=== PATIENT | female | born 1975 | race African-American/Black ===

== ENCOUNTER 2017-05-23 07:36 | Emergency (ER) | payer SELFPAY ==
[~2017-05-23] VITALS: Ht 157.5 cm; Wt 80.7 kg
[~2017-05-23 07:36] MED LIST: AMOXICILLIN500 M1 PO; LORATADINE10 M2 PO; NORCO 5-325 TA1 EACH ORAL; PHENERGAN6.25 MG/5 GT; XANAX1 MG ORAL
[2017-05-23 08:00] VITALS: BP 177/83
[2017-05-23] MEDS ORDERED: Morphine Sulfate 4mg/ml Inj ONE (08:06)
[2017-05-23] MEDS ORDERED: LORazepam Inj 2mg/ml 1ml ONE (08:07)
[2017-05-23] MEDS ORDERED: NKM (09:13)
--- NOTE | 2017-05-23 09:30 | Emergency Room Report ---
History of Present Illness General Chief Complaint: Abdominal Pain Source: Patient Present Illness HPI Patient presents with significant epigastric abdominal pain reports his radiation towards her back Patient reports several episodes of vomiting Pain came on this morning approximately 3 hours prior to arrival Denies any fevers Denies any chest pain or shortness of breath Pain is 10 out of 10 sharp Denies any previous abdominal surgeries Allergies: Coded Allergies: [place] (Verified Allergy, Intermediate, Hives, 09/12/14) Patient History Past Medical History: see triage record Pertinent Family History: none Last Menstrual Period: 05/17/17 Now: No Reviewed Nursing Documentation: PMH: Agreed, PSxH: Agreed Nursing Documentation-PMH Past Medical History: No Stated History Review of Systems All Other Systems: negative except mentioned in HPI Physical Exam Vital Signs Date Time Temp Pulse Resp B/P (MAP) Pulse Ox O2 Delivery O2 Flow Rate FiO2 05/23/17 08:00 66 18 177/83 97 Room Air 05/23/17 09:11 99.0 Sp02 EP Interpretation: reviewed, normal General Appearance: mild distress - Appears uncomfortable Head: normocephalic, atraumatic Eyes: bilateral eye PERRL, bilateral eye EOMI ENT: hearing grossly normal, normal pharynx, TMs + canals normal, uvula midline Neck: full range of motion, supple, no meningismus, no bony tend Respiratory: lungs clear, normal breath sounds, no rhonchi, no respiratory distress, no retraction, no accessory muscle use Cardiovascular #1: normal peripheral pulses, regular rate, rhythm, no edema, no gallop, no JVD, no murmur Gastrointestinal: normal bowel sounds, soft, no mass, no organomegaly, non- distended, no guarding, no hernia, no pulsatile mass, no rebound, tenderness - Epigastric region Genitourinary: no CVA tenderness Musculoskeletal: normal inspection Neurologic: oriented x3, responsive, service technician copier III-XII nml as tested, motor strength/ tone normal, sensory intact Psychiatric: mood/affect normal Skin: normal color, no rash, warm/dry, palpation normal Lymphatic: normal inspection, no adenopathy Medical Decision Making Diagnostic Impression: Primary Impression: Abdominal pain Additional Impressions: Ovarian cyst Pelvic congestion syndrome Biliary colic ER Course With the patient's history and examination, multiple differentials considered, including but not limited to , ectopic , ovarian torsion, gastritis, cholecystitis, pancreatitis, appendicitis Patient's imaging studies reveal several abnormalities Her findings suggesting pelvic congestion Also evidence of ovarian cyst Patient also has findings of gallstones which do correlate clinically with the location of discomfort and likely evidence of pericolic Patient has done significantly better At this time other imaging as I feel acute pathology And the patient stable for initial conservative outpatient trial Labs Test 05/23/17 09:07 05/23/17 09:30 Urine Color Pale yellow Urine Appearance Clear Urine pH 8 (4.5-8.0) Urine Specific [place] 1.015 (1.005-1.035) Urine Protein 1+ (NEGATIVE) Urine Glucose (UA) Negative (NEGATIVE) Urine Ketones 3+ (NEGATIVE) Urine Occult Blood 1+ (NEGATIVE) Urine Nitrite Negative (NEGATIVE) Urine Bilirubin Negative (NEGATIVE) Urine Urobilinogen Normal MG/DL (0.0-1.0) Urine Leukocyte Esterase Negative (NEGATIVE) Urine RBC 2-4 /HPF (0 - 2) Urine WBC 0-2 /HPF (0 - 2) Urine Squamous Epithelial Cells Few /LPF (NONE/OCC) Urine Bacteria Few /HPF (NONE) Urine Mucus Few /LPF (NONE/OCC) Urine HCG, Qualitative Negative White Blood Count 10.5 K/UL (4.8-10.8) Red Blood Count 5.14 M/UL (4.20-5.40) Hemoglobin 13.7 G/DL (12.0-16.0) Hematocrit 41.9 % (37.0-47.0) Mean Corpuscular Volume 82 FL (80-99) Mean Corpuscular Hemoglobin 26.7 PG (27.0-31.0) Mean Corpuscular Hemoglobin Concent 32.8 G/DL (32.0-36.0) Red Cell Distribution Width 13.4 % (11.6-14.8) Platelet Count 533 K/UL (150-450) Mean Platelet Volume 5.1 FL (6.5-10.1) Neutrophils (%) (Auto) % (45.0-75.0) Lymphocytes (%) (Auto) % (20.0-45.0) Monocytes (%) (Auto) % (1.0-10.0) Eosinophils (%) (Auto) % (0.0-3.0) Basophils (%) (Auto) % (0.0-2.0) Differential Total Cells Counted 100 Neutrophils % (Manual) 79 % (45-75) Lymphocytes % (Manual) 17 % (20-45) Monocytes % (Manual) 4 % (1-10) Eosinophils % (Manual) 0 % (0-3) Basophils % (Manual) 0 % (0-2) Band Neutrophils 0 % (0-8) Platelet Estimate Increased Platelet Morphology Normal Red Blood Cell Morphology Normal Sodium Level 136 MMOL/L (136-145) Potassium Level 2.8 MMOL/L (3.5-5.1) Chloride Level 98 MMOL/L (98-107) Carbon Dioxide Level 25 MMOL/L (21-32) Anion Gap 13 mmol/L (5-15) Blood Urea Nitrogen 4 mg/dL (7-18) Creatinine 0.8 MG/DL (0.55-1.30) Estimat Glomerular Filtration Rate > 60 mL/min (>60) Glucose Level 118 MG/DL (74-106) Calcium Level 9.7 MG/DL (8.5-10.1) Total Bilirubin 0.4 MG/DL (0.2-1.0) Aspartate Amino Transf (AST/SGOT) 17 U/L (15-37) Alanine Aminotransferase (ALT/SGPT) 15 U/L (12-78) Alkaline Phosphatase 91 U/L (46-116) Total Protein 9.7 G/DL (6.4-8.2) Albumin 3.9 G/DL (3.4-5.0) Globulin 5.8 g/dL Albumin/Globulin Ratio 0.7 (1.0-2.7) Lipase 72 U/L (73-393) CT/MRI/US Diagnostic Results CT/MRI/US Diagnostic Results : Impression CT abdomen pelvisImpression: No definite acute process 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 Correlation with clinical findings is recommended Bilateral ovarian cysts, most likely functional cysts or dominant follicles. Recommend pelvic sonography to better characterize and determine appropriate follow-up Multiple liver lesions. The largest in the dome is likely but not definitively a benign hemangioma. The second largest is nonspecific and the others are too small to characterize. Recommend further follow-up with hemangioma protocol contrast MRI or CT Cholelithiasis Lumbar scoliosis and arthrosis Last Vital Signs Date Time Temp Pulse Resp B/P (MAP) Pulse Ox O2 Delivery O2 Flow Rate FiO2 05/23/17 09:11 99.0 58 21 166/85 99 Room Air Status: improved Disposition: HOME, SELF-CARE Condition: Improved Scripts Acetaminophen With Codeine (T#3) (TYLENOL #3 TAB*) Y Tab 1 TAB ORAL Q8H Y for For Pain, #12 TAB Prov: NATALIA DAVIES D.O. 05/23/17 Ibuprofen* (MOTRIN*) 600 Mg Tablet 600 MG ORAL Q8H Y for For Pain, #20 TAB 0 Refills Prov: NATALIA DAVIES D.O. 05/23/17 Referrals: NOT CHOSEN IPA/,REFERRING (PCP) Additional Instructions: Patient is provided with the discharge instructions notified to follow up with primary doctor in the next 2-3 days otherwise return to the er with any worsening symptoms. Please note that this report is being documented using DRAG[employer] technology. This can lead to erroneous entry secondary to incorrect interpretation by the dictating instrument. NATALIA DAVIES D.O. May 23, 2017 09:30
[2017-05-23 09:43] LABS: HEMATOCRIT 41.9 % (37.0-47.0); HEMOGLOBIN 13.7 G/DL (12.0-16.0); MEAN CORPUSCULAR VOLUME 82 FL (80-99); PLATELET COUNT 533 K/UL (150-450); RED BLOOD COUNT 5.14 M/UL (4.20-5.40); RED CELL DISTRIBUTION WIDTH 13.4 % (11.6-14.8); WHITE BLOOD COUNT 10.5 K/UL (4.8-10.8)
[2017-05-23 09:49] LABS: APPEARANCE,URINE CLEAR; BILIRUBIN, URINE NEGATIVE (NEGATIVE); COLOR,URINE PALE YELLOW; GLUCOSE, URINE (UA) NEGATIVE (NEGATIVE); KETONES,URINE 3+ (NEGATIVE); LEUKOCYTE ESTERASE ,URINE NEGATIVE (NEGATIVE); NITRITE,URINE NEGATIVE (NEGATIVE); PH,URINE 8 (4.5-8.0); PROTEIN,URINE 1+ (NEGATIVE); UROBILINOGEN,URINE NORMAL MG/DL (0.0-1.0)
[2017-05-23 09:59] LABS: ALANINE AMINOTRANSFERASE 15 U/L (12-78); ALBUMIN 3.9 G/DL (3.4-5.0); ALBUMIN/GLOBULIN RATIO 0.7 (1.0-2.7); ALKALINE PHOSPHATASE 91 U/L (46-116); ANION GAP 13 mmol/L (5-15); ASPARTATE AMINO TRANSFERASE 17 U/L (15-37); BILIRUBIN,TOTAL 0.4 MG/DL (0.2-1.0); BLOOD UREA NITROGEN 4 mg/dL (7-18); CALCIUM 9.7 MG/DL (8.5-10.1); CARBON DIOXIDE 25 MMOL/L (21-32); CHLORIDE 98 MMOL/L (98-107); CREATININE 0.8 MG/DL (0.55-1.30); POTASSIUM 2.8 MMOL/L (3.5-5.1); SODIUM 136 MMOL/L (136-145)
[2017-05-23 10:00] VITALS: BP 180/88
[2017-05-23] MEDS ORDERED: Ketorolac 30mg Inj IV ONE (11:30)
--- NOTE | 2017-05-23 11:37 | Diagnostic Imaging Report ---
Clinical Indication: Abdominal pain Technique: No oral contrast utilized, per emergency room physician request IV administration nonionic contrast. Venous phase spiral acquisition obtained through the abdomen and pelvis. Multiplanar reconstructions were generated. Total dose length product 881.57 mGycm. CTDIvol(s) 18.84 mGy. Dose reduction achieved using automated exposure control Comparison: none Findings: No evidence of diverticulosis or diverticulitis. The appendix is normal. No small bowel distention. No free or loculated intraperitoneal air or fluid. Distal esophagus, stomach, duodenum are unremarkable. Prominent cysts are seen in both ovaries, largest on the left measuring 3.6 cm long axis dimension, largest on the right measuring 4.5 cm long axis dimension. Prominent veins are seen in the bilateral adnexal regions. Both ovarian veins are distended, particularly that on the left. The uterus is unremarkable. The liver demonstrates focal fatty change in the usual location adjacent to the falciform ligament. There is a 13 mm lesion in the dome of the liver, segment 8, which demonstrates some nodular enhancement. 1 cm lesion which demonstrates nonspecific low-attenuation is seen at the junction of segments one and 8, image 15 series 3 subcentimeter low-attenuation lesions seen in the periphery of segment 8 image 14 series 3 and in segment 5, image 27 series 3. The gallbladder demonstrates a probable subtle gallstone. No extrahepatic biliary ductal dilatation, but there is mild prominence to the central intrahepatic ducts. The pancreas is somewhat atrophic. The spleen, adrenals, kidneys are unremarkable. No retroperitoneal or mesenteric mass or adenopathy. The lung bases are clear except for some scarring or atelectasis in the inferior left lobe. There is lumbar scoliotic deformity. There is fairly extensive lower lumbar facet arthrosis. 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 Correlation with clinical findings is recommended Bilateral ovarian cysts, most likely functional cysts or dominant follicles. Recommend pelvic sonography to better characterize and determine appropriate follow-up Multiple liver lesions. The largest in the dome is likely but not definitively a benign hemangioma. The second largest is nonspecific and the others are too small to characterize. Recommend further follow-up with hemangioma protocol contrast MRI or CT Cholelithiasis Lumbar scoliosis and arthrosis The CT scanner at [facility] is accredited by the [employer] and the scans are performed using protocols designed to limit radiation exposure to as low as reasonably achievable to attain images of sufficient resolution adequate for diagnostic evaluation.
[2017-05-23 12:00] VITALS: BP 171/80
[2017-05-23] MEDS ORDERED: ACETAMINOPHEN-1 EAC1 ORAL (12:23)
[2017-05-23] MEDS ORDERED: IBUPROFEN600 MG ORAL (12:23)
[2017-05-23 13:05] VITALS: BP_SYST 164; BP_SYST 166; BP_DIAS 85; BP_DIAS 99
== END 2017-05-23 13:05 | disposition home or self-care (01) ==
LOC: EMR 08:30
DX: R10.13 Epigastric pain (principal); N83.202 Unspecified ovarian cyst, left side; N83.201 Unspecified ovarian cyst, right side; K76.9 Liver disease, unspecified; K80.20 Calculus of gallbladder without cholecystitis without obstruction; M41.86 Other forms of scoliosis, lumbar region
CPT/HCPCS: 36415; 74177; 80053; 81003; 81025; 83690; 85007; 85025; 96374; 96375; 99284; J1885; J2270; J2405; Q9967; S0028; J8499

== ENCOUNTER 2017-07-03 07:01 | Emergency (ER) | payer SELFPAY ==
[~2017-07-03] VITALS: Ht 165.1 cm; Wt 77.1 kg
[2017-07-03] VITALS (10 sets, daily range): BP systolic 134–152; BP diastolic 78–91
[~2017-07-03 07:01] MED LIST changes: +ACETAMINOPHEN-1 EAC1 ORAL; +IBUPROFEN600 MG ORAL; +NKM
[2017-07-03] MEDS ORDERED: UNOBMED (07:07)
--- NOTE | 2017-07-03 07:11 | Emergency Room Report ---
History of Present Illness General Chief Complaint: Behavioral Complaint Source: Patient, EMS Present Illness HPI 42-year-old female brought in by EMS for agitation, running in the streets, acting out. EMS was called by patient's father. Patient not providing useful history of present illness at this time, is very agitated, throwing pens at me, using foul language to nurse and myself, stating she "wants to be Armando Jeffers ". When I asked her if she did a medications patient said she "did Ed Rosales." Review of EMR does not show any previous psychiatric visits. There are no other family or friends bedside to provide collateral information. Allergies: Coded Allergies: [place] (Verified Allergy, Intermediate, Hives, 09/12/14) Patient History Past Medical History: unable to obtain Past Surgical History: unable to obtain Pertinent Family History: unable to obtain Social History: Denies: smoking, alcohol use, drug use Now: No Reviewed Nursing Documentation: PMH: Agreed, PSxH: Agreed Nursing Documentation-PMH History Of Psychiatric Problem: Yes Review of Systems All Other Systems: limited - Patient altered Physical Exam Vital Signs Date Time Temp Pulse Resp B/P (MAP) Pulse Ox O2 Delivery O2 Flow Rate FiO2 07/03/17 07:02 100 18 134/76 100 Room Air Sp02 EP Interpretation: reviewed, normal General Appearance: normal inspection, well appearing, no apparent distress, alert, GCS 15, non-toxic, other - giggling, yelling, throwing pens Head: normocephalic, atraumatic Eyes: bilateral eye PERRL, bilateral eye EOMI ENT: normal ENT inspection, hearing grossly normal, normal pharynx, no angioedema, normal voice, TMs + canals normal, uvula midline, moist mucus membranes Neck: normal inspection, full range of motion, supple, thyroid normal, no meningismus, no bony tend Respiratory: normal inspection, lungs clear, normal breath sounds, no rhonchi, no respiratory distress, no retraction, no accessory muscle use, no wheezing, speaking full sentences Cardiovascular #1: regular rate, rhythm, no edema, no JVD, normal capillary refill Gastrointestinal: normal inspection, normal bowel sounds, non tender, soft, no mass, no peritonitis, non-distended, no guarding, no hernia, no pulsatile mass Genitourinary: no CVA tenderness Musculoskeletal: normal inspection, back normal, normal range of motion, no calf tenderness, pelvis stable, Raji's Sign negative Neurologic: normal inspection, alert, responsive, automation control technician III-XII nml as tested, motor strength/tone normal, cerebellar normal, normal gait, speech normal Psychiatric: normal inspection, judgement/insight normal Skin: normal inspection, normal color, no rash Lymphatic: normal inspection, no adenopathy Medical Decision Making Diagnostic Impression: Primary Impression: Behavioral change Additional Impression: Marijuana abuse ER Course Vital signs stable, afebrile Despite sedation patient repeatedly trying to get out of bed, was preaching to ER staff, quoting from [place]. Patient required soft wrist restraints however broke out of restraints. Then leather restraints were placed to wrist. Patient's urine tox positive for marijuana and benzos Patient states she does smoke marijuana but "hasn't done in a while and asked us these in her urine". I was concern for psychotic break through episode and consulted psychiatry Dr De La Cruz saw patient, concurs possibility of breakthrough episode from marijuana abuse. Patient was given additional IM injection of antipsychotic on psychiatry's recommendation and prescription for Risperdal daily at bedtime for 2 weeks with recommendation to follow-up with psych and avoid marijuana. She is not on a hold Is not endorsing SI, HI, AVH. Patient wants to go home. Was discharged from the ER ER course: Patient has remained stable during ED stay. Disposition: Patient is to be discharged to home. Prescriptions given are risperdal Patient is instructed to follow up with psychiatrist in 2-3 days Strict return precautions discussed with patient such as fever, chills, worsening/severe pain, nausea, vomiting, which may indicate severe illness. Patient verbalizes understanding and agrees with plan. Please note that this Emergency Department Report was dictated using [employer] research manager technology software, occasionally this can lead to erroneous entry secondary to interpretation by the dictation equipment Last Vital Signs Date Time Temp Pulse Resp B/P (MAP) Pulse Ox O2 Delivery O2 Flow Rate FiO2 07/03/17 07:02 100 18 134/76 100 Room Air Status: improved Disposition: HOME, SELF-CARE Scripts Risperidone* (RISPERDAL*) 2 Mg Tablet 2 MG ORAL QHS for 14 Days, #14 TAB 0 Refills Prov: DONG LYNCH M.D. 07/03/17 DONG LYNCH M.D. Jul 03, 2017 07:11
[2017-07-03] MEDS ORDERED: Haloperidol 5mg/ml Inj IM ONE (07:15)
[2017-07-03] MEDS ORDERED: LORazepam Inj 2mg/ml 1ml IM ONE (07:15)
[2017-07-03] MEDS ORDERED: RISPERDAL2 MG ORAL (10:51)
[2017-07-03] MEDS ORDERED: fluPHENAZine Decanoate 25mg Inj IM ONE (11:00)
--- NOTE | 2017-07-03 22:26 | Consultation ---
History of Present Illness General Date patient seen: Jul 03, 2017 Chief Complaint: Behavioral Complaint Present Illness HPI 42-year-old female brought in by EMS for agitation, running in the streets, acting out. EMS was called by patient's father.the pt was calm and did not endorse any psychotic or manic sxs during the eval. the pt agreed to get a prolexin dec shot was able to understand the risks vs benefits. sw would speak to pt and her father. the pt reluctant to see a psychiatrist. Allergies: Coded Allergies: [place] (Verified Allergy, Intermediate, Hives, 09/12/14) Medication History Scheduled Alprazolam* (Xanax*), 1 TAB ORAL THREE TIMES A DAY Amoxicillin (Amoxicillin), 500 MG PO TID No Known Medications* (NKM - No Known Medications*), 0 ., (Reported) Risperidone* (Risperdal*), 2 MG ORAL QHS Scheduled PRN Acetaminophen With Codeine (T#3) (Tylenol #3 Tab*), 1 TAB ORAL Q8H PRN for For Pain Ibuprofen* (Motrin*), 600 MG ORAL Q8H PRN for For Pain Miscellaneous Medications Unable to Obtain Medications (Unable To Obtain Meds), (Reported) Patient History History Provided By: Patient, Medical Record, PMD Healthcare decision maker Resuscitation status Advanced Directive on File Past Medical/Surgical History Past Medical/Surgical History: (1) Toe fracture, right (2) Toe fracture, right (3) Anxiety (4) Sinusitis (5) Biliary colic (6) Pelvic congestion syndrome (7) Ovarian cyst (8) Abdominal pain Review of Systems Psychiatric: Reports: prior hx, anxiety, depressed feelings, emotional problems Physical Exam General Appearance: WD/WN, no apparent distress, alert Neurologic: alert, oriented x 3, responsive, depressed affect Last 24 Hour Vital Signs Date Time Temp Pulse Resp B/P (MAP) Pulse Ox O2 Delivery O2 Flow Rate FiO2 07/03/17 12:02 98.0 81 16 134/78 98 Room Air 208.4 07/03/17 12:00 208.4 81 16 134/78 98 Room Air 208.4 07/03/17 10:30 98.0 81 16 98 Room Air 07/03/17 10:15 98.0 83 15 100 Room Air 07/03/17 10:00 98.0 81 16 100 Room Air 07/03/17 09:45 98.0 94 16 99 Room Air 07/03/17 09:30 98.0 107 16 98 Room Air 07/03/17 09:15 97.4 91 18 97 Room Air 07/03/17 08:00 98.1 84 20 98 Room Air 07/03/17 07:08 98.3 81 20 138/80 98 Room Air 98.3 07/03/17 07:02 100 18 134/76 100 Room Air Laboratory Tests Test 07/03/17 08:00 Urine Opiates Screen Negative (NEGATIVE) Urine Barbiturates Screen Negative (NEGATIVE) Phencyclidine (PCP) Screen Negative (NEGATIVE) Urine Amphetamines Screen Negative (NEGATIVE) Urine Benzodiazepines Screen Positive (NEGATIVE) H Urine Cocaine Screen Negative (NEGATIVE) Urine Marijuana (THC) Screen Positive (NEGATIVE) H Height (Feet): 5 Height (Inches): 5.00 Weight (Pounds): 170 Assessment/Plan Status: stable Assessment/Plan psychotic d/o nos r/o substance induced psychosis risperdal 2mg qhs prolexin apr 13 im the pt is not at imminent dts/dto Barry Owen M.D. Jul 03, 2017 22:26
== END 2017-07-03 12:04 | disposition home or self-care (01) ==
LOC: EDBD 07:01 → EMR 07:58
DX: F91.9 Conduct disorder, unspecified (principal); F12.10 Cannabis abuse, uncomplicated
CPT/HCPCS: 80307; 96372; 99284; J1630; J2680

== ENCOUNTER 2017-09-08 10:22 | Emergency (ER) | payer MEDICAID ==
[~2017-09-08] VITALS: Ht 157.5 cm; Wt 77.1 kg
[~2017-09-08 10:22] MED LIST changes: +RISPERDAL2 MG ORAL; +UNOBMED
[2017-09-08 11:05] LABS: APPEARANCE,URINE CLEAR; BILIRUBIN, URINE NEGATIVE (NEGATIVE); COLOR,URINE PALE YELLOW; GLUCOSE, URINE (UA) NEGATIVE (NEGATIVE); KETONES,URINE NEGATIVE (NEGATIVE); LEUKOCYTE ESTERASE ,URINE NEGATIVE (NEGATIVE); NITRITE,URINE NEGATIVE (NEGATIVE); PH,URINE 6 (4.5-8.0); PROTEIN,URINE NEGATIVE (NEGATIVE); UROBILINOGEN,URINE NORMAL MG/DL (0.0-1.0)
--- NOTE | 2017-09-08 11:08 | Emergency Room Report ---
History of Present Illness General Chief Complaint: Abdominal Pain Source: Patient Present Illness HPI Patient is a 42-year-old female who presented after increased lower abdominal pain. Patient ports have increased pain for the past few days. Patient reports having increased pain with supine position. Patient prior history of bilateral ovarian cysts. The patient reports having change in her menses. She denies any fever. Pain was associated with no vomiting or upper abdominal pain. Patient also been preceded diagnosis gallstones. Patient is followed by Dr. Giles. Allergies: Coded Allergies: [place] (Verified Allergy, Intermediate, Hives, 09/12/14) Patient History Past Medical History: see triage record Last Menstrual Period: 07/08/17 Now: No Reviewed Nursing Documentation: PMH: Agreed; PSxH: Agreed Review of Systems All Other Systems: negative except mentioned in HPI Physical Exam Vital Signs Date Time Temp Pulse Resp B/P (MAP) Pulse Ox O2 Delivery O2 Flow Rate FiO2 09/08/17 10:28 98.6 70 18 163/109 98 Room Air 98.6 Sp02 EP Interpretation: reviewed, normal General Appearance: normal inspection, well appearing, no apparent distress, alert, GCS 15 Head: atraumatic ENT: normal ENT inspection, hearing grossly normal, normal voice Neck: normal inspection, full range of motion, supple, no bony tend Respiratory: normal inspection, lungs clear, normal breath sounds, no respiratory distress, no retraction, no wheezing Cardiovascular #1: regular rate, rhythm, no edema Gastrointestinal: normal inspection, normal bowel sounds, non tender, soft, no guarding, no hernia Genitourinary: no CVA tenderness Musculoskeletal: normal inspection, back normal, normal range of motion Neurologic: normal inspection, alert, oriented x3, responsive, 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 Differential diagnoses included ischemic bowel, appendicitis, perforated viscus, abdominal aortic aneurysm, inferior myocardial infarction, viral gastroenteritis Because of complexity of patient's case laboratory testing and imaging studies were ordered.The patient was given IV nausea medications as well as the pain medication. Ultrasound was ordered. Laboratory testing was unremarkable. The patient subsequently stated that she cannot remain in the hospital did not want to wait for further imaging. Patient appears to be in no acute distress this time. 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 The patient is advised to return if she changed her mind. Labs Test 09/08/17 10:40 09/08/17 11:40 Urine Color Pale yellow Urine Appearance Clear Urine pH 6 (4.5-8.0) Urine Specific [place] 1.010 (1.005-1.035) Urine Protein Negative (NEGATIVE) Urine Glucose (UA) Negative (NEGATIVE) Urine Ketones Negative (NEGATIVE) Urine Occult Blood Negative (NEGATIVE) Urine Nitrite Negative (NEGATIVE) Urine Bilirubin Negative (NEGATIVE) Urine Urobilinogen Normal MG/DL (0.0-1.0) Urine Leukocyte Esterase Negative (NEGATIVE) Urine HCG, Qualitative Negative (NEGATIVE) White Blood Count 8.5 K/UL (4.8-10.8) Red Blood Count 4.82 M/UL (4.20-5.40) Hemoglobin 12.6 G/DL (12.0-16.0) Hematocrit 40.1 % (37.0-47.0) Mean Corpuscular Volume 83 FL (80-99) Mean Corpuscular Hemoglobin 26.1 PG (27.0-31.0) Mean Corpuscular Hemoglobin Concent 31.5 G/DL (32.0-36.0) Red Cell Distribution Width 13.8 % (11.6-14.8) Platelet Count 508 K/UL (150-450) Mean Platelet Volume 5.4 FL (6.5-10.1) Neutrophils (%) (Auto) 72.8 % (45.0-75.0) Lymphocytes (%) (Auto) 21.9 % (20.0-45.0) Monocytes (%) (Auto) 4.4 % (1.0-10.0) Eosinophils (%) (Auto) 0.4 % (0.0-3.0) Basophils (%) (Auto) 0.5 % (0.0-2.0) Sodium Level 139 MMOL/L (136-145) Potassium Level 4.1 MMOL/L (3.5-5.1) Chloride Level 101 MMOL/L (98-107) Carbon Dioxide Level 31 MMOL/L (21-32) Anion Gap 7 mmol/L (5-15) Blood Urea Nitrogen 6 mg/dL (7-18) Creatinine 0.8 MG/DL (0.55-1.30) Estimat Glomerular Filtration Rate > 60 mL/min (>60) Glucose Level 85 MG/DL (74-106) Calcium Level 9.2 MG/DL (8.5-10.1) Total Bilirubin 0.3 MG/DL (0.2-1.0) Aspartate Amino Transf (AST/SGOT) 23 U/L (15-37) Alanine Aminotransferase (ALT/SGPT) 24 U/L (12-78) Alkaline Phosphatase 101 U/L (46-116) Total Protein 9.3 G/DL (6.4-8.2) Albumin 3.7 G/DL (3.4-5.0) Globulin 5.6 g/dL Albumin/Globulin Ratio 0.7 (1.0-2.7) Last Vital Signs Date Time Temp Pulse Resp B/P (MAP) Pulse Ox O2 Delivery O2 Flow Rate FiO2 09/08/17 10:28 98.6 70 18 163/109 98 Room Air 98.6 Status: improved Disposition: HOME, SELF-CARE Condition: Stable Scripts Acetaminophen With Codeine (T#3) (TYLENOL #3 TAB*) Y Tab 1 TAB ORAL Q4H PRN for For Pain, #20 TAB Prov: Marlo Dunn MD 09/08/17 Ibuprofen* (MOTRIN*) 600 Mg Tablet 600 MG ORAL Q8H PRN for For Pain, #20 TAB 0 Refills Prov: Marlo Dunn MD 09/08/17 Marlo Dunn MD September 08, 2017 11:07
[2017-09-08] MEDS ORDERED: Norco 5mg/325mg tab ORAL ONE (11:15)
[2017-09-08 12:00] VITALS: BP 158/93
[2017-09-08 12:05] LABS: BASOPHILS % (AUTO) 0.5 % (0.0-2.0); EOSINOPHILS % (AUTO) 0.4 % (0.0-3.0); HEMATOCRIT 40.1 % (37.0-47.0); HEMOGLOBIN 12.6 G/DL (12.0-16.0); LYMPHOCYTES % (AUTO) 21.9 % (20.0-45.0); MEAN CORPUSCULAR VOLUME 83 FL (80-99); MONOCYTES % (AUTO) 4.4 % (1.0-10.0); NEUTROPHILS % (AUTO) 72.8 % (45.0-75.0); PLATELET COUNT 508 K/UL (150-450); RED BLOOD COUNT 4.82 M/UL (4.20-5.40); RED CELL DISTRIBUTION WIDTH 13.8 % (11.6-14.8); WHITE BLOOD COUNT 8.5 K/UL (4.8-10.8)
[2017-09-08 12:14] LABS: ANION GAP 7 mmol/L (5-15); BLOOD UREA NITROGEN 6 mg/dL (7-18); CALCIUM 9.2 MG/DL (8.5-10.1); CARBON DIOXIDE 31 MMOL/L (21-32); CHLORIDE 101 MMOL/L (98-107); CREATININE 0.8 MG/DL (0.55-1.30); POTASSIUM 4.1 MMOL/L (3.5-5.1); SODIUM 139 MMOL/L (136-145)
[2017-09-08 12:18] LABS: ALANINE AMINOTRANSFERASE 24 U/L (12-78); ALBUMIN 3.7 G/DL (3.4-5.0); ALBUMIN/GLOBULIN RATIO 0.7 (1.0-2.7); ALKALINE PHOSPHATASE 101 U/L (46-116); ASPARTATE AMINO TRANSFERASE 23 U/L (15-37); BILIRUBIN,TOTAL 0.3 MG/DL (0.2-1.0)
[2017-09-08] MEDS ORDERED: ACETAMINOPHEN-1 EAC1 ORAL (12:25)
[2017-09-08] MEDS ORDERED: IBUPROFEN600 MG ORAL (12:25)
[2017-09-08 12:45] VITALS: BP 158/93
== END 2017-09-08 13:00 | disposition home or self-care (01) ==
LOC: EMR 11:14
DX: R10.30 Lower abdominal pain, unspecified (principal); N83.209 Unspecified ovarian cyst, unspecified side
CPT/HCPCS: 36415; 80053; 81003; 81025; 85025; 99282

== ENCOUNTER 2017-09-15 16:55 | Emergency (ER) | payer MEDICAID ==
[~2017-09-15] VITALS: Ht 157.5 cm; Wt 80.7 kg
[2017-09-15 17:16] VITALS: BP 113/73
[2017-09-15] MEDS ORDERED: Morphine Sulfate 4mg/ml Inj IVP ONE ×2 (17:45→21:15)
[2017-09-15 18:17] LABS: BASOPHILS % (AUTO) 0.7 % (0.0-2.0); EOSINOPHILS % (AUTO) 0.8 % (0.0-3.0); HEMATOCRIT 36.6 % (37.0-47.0); HEMOGLOBIN 11.8 G/DL (12.0-16.0); LYMPHOCYTES % (AUTO) 30.8 % (20.0-45.0); MEAN CORPUSCULAR VOLUME 83 FL (80-99); MONOCYTES % (AUTO) 6.3 % (1.0-10.0); NEUTROPHILS % (AUTO) 61.4 % (45.0-75.0); PLATELET COUNT 441 K/UL (150-450); RED BLOOD COUNT 4.39 M/UL (4.20-5.40); WHITE BLOOD COUNT 11.2 K/UL (4.8-10.8)
[2017-09-15 18:20] LABS: INR 0.9 (0.9-1.1)
[2017-09-15 18:27] LABS: ANION GAP 7 mmol/L (5-15); BLOOD UREA NITROGEN 15 mg/dL (7-18); CALCIUM 9.6 MG/DL (8.5-10.1); CARBON DIOXIDE 31 MMOL/L (21-32); CHLORIDE 102 MMOL/L (98-107); POTASSIUM 4.3 MMOL/L (3.5-5.1); SODIUM 140 MMOL/L (136-145)
[2017-09-15 18:32] LABS: ALANINE AMINOTRANSFERASE 22 U/L (12-78); ALBUMIN 3.6 G/DL (3.4-5.0); ALBUMIN/GLOBULIN RATIO 0.8 (1.0-2.7); ALKALINE PHOSPHATASE 83 U/L (46-116); ASPARTATE AMINO TRANSFERASE 15 U/L (15-37); BILIRUBIN,TOTAL 0.2 MG/DL (0.2-1.0)
[2017-09-15 19:01] VITALS: BP 139/77
--- NOTE | 2017-09-15 20:37 | Emergency Room Report ---
History of Present Illness General Chief Complaint: Pain Source: Patient Present Illness HPI The patient is a 42-year-old female who presented after increased epigastric pain. Patient gradual onset of symptoms. She reports having worsening pain with supine position. Patient reports having the tightness sensation to the upper abdomen. She reports severe pain which the the did not radiate. Patient recently been seen by me was noted to have previous CT imaging which showed bilateral ovarian cysts. The patient was noted to have previous Tylenol with codeine. The patient stated this was not helping. Allergies: Coded Allergies: [place] (Verified Allergy, Intermediate, Hives, 09/12/14) Patient History Past Medical History: see triage record Last Menstrual Period: 07/08/17 Reviewed Nursing Documentation: PMH: Agreed; PSxH: Agreed Review of Systems All Other Systems: negative except mentioned in HPI Physical Exam Vital Signs Date Time Temp Pulse Resp B/P (MAP) Pulse Ox O2 Delivery O2 Flow Rate FiO2 09/15/17 17:07 98.4 78 17 113/73 94 Room Air 98.4 Sp02 EP Interpretation: reviewed, normal General Appearance: normal inspection, well appearing, no apparent distress, alert, obese Head: atraumatic ENT: normal ENT inspection, hearing grossly normal, normal voice Neck: normal inspection, full range of motion, supple, no bony tend Respiratory: normal inspection, lungs clear, normal breath sounds, no respiratory distress, no retraction, no wheezing Cardiovascular #1: regular rate, rhythm, no edema Gastrointestinal: normal inspection, normal bowel sounds, soft, no guarding, no hernia, tenderness - epigastric Genitourinary: no CVA tenderness Musculoskeletal: normal inspection, back normal, normal range of motion Neurologic: normal inspection, alert, oriented x3, responsive, machine cementer and folder III-XII nml as tested, speech normal Psychiatric: normal inspection, judgement/insight normal, mood/affect normal Skin: normal inspection, normal color, no rash Medical Decision Making Diagnostic Impression: Primary Impression: Symptomatic cholelithiasis Additional Impressions: Anemia Ovarian cyst ER Course Patient presented for abdominal pain. Differential diagnoses included ischemic bowel, appendicitis, perforated viscus, abdominal aortic aneurysm, inferior myocardial infarction, viral gastroenteritis, ovarian torsion Because of complexity of patient's case laboratory testing and imaging studies were ordered. Laboratory testing was notable for a mildly elevated white blood count as well as worsening anemia. The abdominal ultrasound was performed. The patient was given pain medications. The patient was discussed with Dr. Alisson avalos for transfer to [facility]. Labs Test 09/15/17 17:50 White Blood Count 11.2 K/UL (4.8-10.8) Red Blood Count 4.39 M/UL (4.20-5.40) Hemoglobin 11.8 G/DL (12.0-16.0) Hematocrit 36.6 % (37.0-47.0) Mean Corpuscular Volume 83 FL (80-99) Mean Corpuscular Hemoglobin 26.9 PG (27.0-31.0) Mean Corpuscular Hemoglobin Concent 32.3 G/DL (32.0-36.0) Red Cell Distribution Width 14.0 % (11.6-14.8) Platelet Count 441 K/UL (150-450) Mean Platelet Volume 5.1 FL (6.5-10.1) Neutrophils (%) (Auto) 61.4 % (45.0-75.0) Lymphocytes (%) (Auto) 30.8 % (20.0-45.0) Monocytes (%) (Auto) 6.3 % (1.0-10.0) Eosinophils (%) (Auto) 0.8 % (0.0-3.0) Basophils (%) (Auto) 0.7 % (0.0-2.0) Prothrombin Time 9.3 SEC (9.30-11.50) Prothromb Time International Ratio 0.9 (0.9-1.1) Activated Partial Thromboplast Time 28 SEC (23-33) Sodium Level 140 MMOL/L (136-145) Potassium Level 4.3 MMOL/L (3.5-5.1) Chloride Level 102 MMOL/L (98-107) Carbon Dioxide Level 31 MMOL/L (21-32) Anion Gap 7 mmol/L (5-15) Blood Urea Nitrogen 15 mg/dL (7-18) Creatinine 1.0 MG/DL (0.55-1.30) Estimat Glomerular Filtration Rate > 60 mL/min (>60) Glucose Level 109 MG/DL (74-106) Calcium Level 9.6 MG/DL (8.5-10.1) Total Bilirubin 0.2 MG/DL (0.2-1.0) Aspartate Amino Transf (AST/SGOT) 15 U/L (15-37) Alanine Aminotransferase (ALT/SGPT) 22 U/L (12-78) Alkaline Phosphatase 83 U/L (46-116) Troponin I 0.000 ng/mL (0.000-0.056) Total Protein 8.2 G/DL (6.4-8.2) Albumin 3.6 G/DL (3.4-5.0) Globulin 4.6 g/dL Albumin/Globulin Ratio 0.8 (1.0-2.7) Lipase 227 U/L (73-393) EKG Diagnostic Results Rate: normal - 66 Rhythm: NSR ST Segments: no acute changes ASA given to the pt in ED: No Last Vital Signs Date Time Temp Pulse Resp B/P (MAP) Pulse Ox O2 Delivery O2 Flow Rate FiO2 09/15/17 19:01 98.4 64 20 139/77 98 Room Air 98.4 Status: unchanged Disposition: XFER SHT-TRM HOSP Condition: Serious Referrals: Adelso Giles MD (PCP) Marlo Dunn MD September 15, 2017 20:37
[2017-09-15 21:25] VITALS: BP 105/60
[2017-09-15 21:30] VITALS: BP 105/60
--- NOTE | 2017-09-16 10:48 | Diagnostic Imaging Report ---
Indication:Abdominal pain Technique: Grayscale and duplex Doppler imaging of the abdomen performed. Comparison: None Findings: Echogenic foci demonstrated within the liver. Some of these appear to correspond with recent CT and the likely hemangiomas. More definitive evaluation with hemangioma protocol CT or MR suggested. Gallbladder noted with gallstone. Sonographic [place]'s is negative per technologist. No biliary ductal dilatation is identified. The kidneys are unremarkable. There is no free fluid. There is no splenomegaly. CBD is 3.8 mm. The incus and aorta obscured. IMPRESSION: Cholelithiasis. Echogenic lesions within the liver probably hemangiomas. Recommend more definitive evaluation with contrast CT (hemangioma protocol). Pancreas and aorta obscured by bowel gas
--- NOTE | 2017-09-16 10:50 | Diagnostic Imaging Report ---
Indication:Lower abdominal and pelvic pain Technique: Grayscale and duplex Doppler imaging of the pelvis performed utilizing a transabdominal scan and endovaginal scan. Comparison: None Findings: There are multiple serpiginous vascular structures best seen on color flow Doppler in and around the uterus. Consider pelvic congestion syndrome. There are multiple bilateral ovarian follicles demonstrated. The uterus appears relatively normal. The endometrial stripe is uniformly echogenic and measures approximately 7 mm. Uterus measures approximately 6.2 x 4.5 x 3.1 cm. Right ovary 4 x 4 0.1 x 2.8 cm. Left ovary 4.2 x 3 x 3.1 cm. IMPRESSION: Suspicion of pelvic congestion syndrome with multiple vessels within the pelvis. Bilateral ovarian follicles.
--- NOTE | 2017-09-16 15:57 | Cardiology Report ---
APPROVED REPORT EKG Measurement Heart [id number] Normal sinus rhythm Nonspecific T wave abnormality Abnormal ECG
== END 2017-09-15 21:37 | disposition short-term general hospital (02) ==
LOC: EMR 17:42
DX: K80.20 Calculus of gallbladder without cholecystitis without obstruction (principal); D64.9 Anemia, unspecified; N83.02 Follicular cyst of left ovary; N83.01 Follicular cyst of right ovary
CPT/HCPCS: 36415; 76700; 76830; 76856; 80053; 82962; 83690; 84484; 85025; 85610; 85730; 86850; 86900; 86901; 93005; 96374; 96375; 96376; 99285; J2270; J2405

== ENCOUNTER 2017-10-05 07:14 | Emergency (ER) | payer MEDICAID ==
[~2017-10-05] VITALS: Ht 157.5 cm; Wt 79.8 kg
[2017-10-05 07:30] VITALS: BP 134/99
[2017-10-05] MEDS ORDERED: Ketorolac 30mg Inj IV ONE (08:00)
--- NOTE | 2017-10-05 08:01 | Emergency Room Report ---
History of Present Illness General Chief Complaint: Vaginal Source: Patient Present Illness HPI Patient states that she is had a long issue with dysmenorrhea and had been diagnosed with ovarian cyst when I reviewed the patient's imaging from previous visit, she has findings consistent with pelvic congestion syndrome on a CT scan and pelvic ultrasound. The patient states that she is due for her period this week. She did have some bleeding yesterday. She states that for about a week she's also had dysuria and polyuria. She states that the urinary symptoms are unusual for her. She denies fever or chills. She denies nausea or vomiting. She has no other complaints. Allergies: Coded Allergies: [place] (Verified Allergy, Intermediate, Hives, 09/12/14) Patient History Past Medical History: see triage record, other - cholelithiasis, pelvic congestion syndrome Social History: Denies: smoking, alcohol use, drug use Last Menstrual Period: July 08 Now: No : 2 Para: 1 Reviewed Nursing Documentation: PMH: Agreed; PSxH: Agreed Nursing Documentation-PMH Past Medical History: No Stated History Review of Systems All Other Systems: negative except mentioned in HPI Physical Exam Vital Signs Date Time Temp Pulse Resp B/P (MAP) Pulse Ox O2 Delivery O2 Flow Rate FiO2 10/05/17 07:21 98.7 69 18 134/99 98 Room Air 98.8 Sp02 EP Interpretation: reviewed, normal General Appearance: no apparent distress, alert, GCS 15, non-toxic Head: normocephalic, atraumatic Eyes: bilateral eye normal inspection, bilateral eye PERRL ENT: hearing grossly normal, normal pharynx, no angioedema, normal voice Neck: full range of motion, supple/symm/no masses Respiratory: chest non-tender, lungs clear, normal breath sounds, speaking full sentences Cardiovascular #1: regular rate, rhythm, no edema Gastrointestinal: normal bowel sounds, non tender, soft, non-distended, no guarding, no rebound Rectal: deferred Musculoskeletal: back normal, gait/station normal, normal range of motion, non- tender Neurologic: alert, oriented x3, responsive, motor strength/tone normal, sensory intact, speech normal Psychiatric: judgement/insight normal, memory normal, mood/affect normal, no suicidal/homicidal ideation Skin: normal color, no rash, warm/dry, well hydrated Medical Decision Making Diagnostic Impression: Primary Impression: Pelvic pain Additional Impression: Pelvic congestion syndrome ER Course This patient has known pelvic congestion syndrome. She is premenstrual. She is having symptoms consistent with this. She will be seeing an [facility] CONSULTANT physician this week for consultation for a hysterectomy. The patient's laboratory workup to include CBC, CMP and urinalysis are unremarkable. There is no evidence of urinary tract infection. I'm unsure of the etiology of this patient's polyuria. I suspect the patient's pain is secondary to the pelvic congestion syndrome. Patient has had multiple recent images to include CT, ultrasound and MRI. She is currently under the care of multiple specialists and her primary care physician. She was instructed to follow-up closely with the planned WINE CONSULTANT specialist. Patient was also educated that she should receive narcotics from her primary care physician. I will give the patient a short course of Tylenol No. 3. Laboratory Tests Test 10/05/17 07:32 10/05/17 08:05 Urine Color Pale yellow Urine Appearance Clear Urine pH 6.5 (4.5-8.0) Urine Specific [place] 1.010 (1.005-1.035) Urine Protein Negative (NEGATIVE) Urine Glucose (UA) Negative (NEGATIVE) Urine Ketones Negative (NEGATIVE) Urine Occult Blood Negative (NEGATIVE) Urine Nitrite Negative (NEGATIVE) Urine Bilirubin Negative (NEGATIVE) Urine Urobilinogen Normal MG/DL (0.0-1.0) Urine Leukocyte Esterase Negative (NEGATIVE) Urine HCG, Qualitative Negative (NEGATIVE) White Blood Count 9.1 K/UL (4.8-10.8) Red Blood Count 5.04 M/UL (4.20-5.40) Hemoglobin 13.5 G/DL (12.0-16.0) Hematocrit 42.8 % (37.0-47.0) Mean Corpuscular Volume 85 FL (80-99) Mean Corpuscular Hemoglobin 26.8 PG (27.0-31.0) L Mean Corpuscular Hemoglobin Concent 31.5 G/DL (32.0-36.0) L Red Cell Distribution Width 14.6 % (11.6-14.8) Platelet Count 485 K/UL (150-450) H Mean Platelet Volume 5.3 FL (6.5-10.1) L Neutrophils (%) (Auto) 73.2 % (45.0-75.0) Lymphocytes (%) (Auto) 20.2 % (20.0-45.0) Monocytes (%) (Auto) 5.2 % (1.0-10.0) Eosinophils (%) (Auto) 0.6 % (0.0-3.0) Basophils (%) (Auto) 0.8 % (0.0-2.0) Sodium Level 137 MMOL/L (136-145) Potassium Level 4.0 MMOL/L (3.5-5.1) Chloride Level 102 MMOL/L (98-107) Carbon Dioxide Level 26 MMOL/L (21-32) Anion Gap 9 mmol/L (5-15) Blood Urea Nitrogen 5 mg/dL (7-18) L Creatinine 0.9 MG/DL (0.55-1.30) Estimate Glomerular Filtration Rate > 60 mL/min (>60) Glucose Level 89 MG/DL (74-106) Calcium Level 9.3 MG/DL (8.5-10.1) Total Bilirubin 0.3 MG/DL (0.2-1.0) Aspartate Amino Transferase (AST) 17 U/L (15-37) Alanine Aminotransferase (ALT) 20 U/L (12-78) Alkaline Phosphatase 77 U/L (46-116) Total Protein 9.0 G/DL (6.4-8.2) H Albumin 3.8 G/DL (3.4-5.0) Globulin 5.2 g/dL Albumin/Globulin Ratio 0.7 (1.0-2.7) L Last Vital Signs Date Time Temp Pulse Resp B/P (MAP) Pulse Ox O2 Delivery O2 Flow Rate FiO2 10/05/17 07:30 98.8 72 18 134/99 98 Room Air 98.8 Status: improved Disposition: HOME, SELF-CARE Condition: Improved Cydney Dailey DO Oct 05, 2017 08:01
[2017-10-05 08:21] LABS: BASOPHILS % (AUTO) 0.8 % (0.0-2.0); EOSINOPHILS % (AUTO) 0.6 % (0.0-3.0); HEMATOCRIT 42.8 % (37.0-47.0); HEMOGLOBIN 13.5 G/DL (12.0-16.0); LYMPHOCYTES % (AUTO) 20.2 % (20.0-45.0); MEAN CORPUSCULAR VOLUME 85 FL (80-99); MONOCYTES % (AUTO) 5.2 % (1.0-10.0); NEUTROPHILS % (AUTO) 73.2 % (45.0-75.0); PLATELET COUNT 485 K/UL (150-450); RED BLOOD COUNT 5.04 M/UL (4.20-5.40); RED CELL DISTRIBUTION WIDTH 14.6 % (11.6-14.8); WHITE BLOOD COUNT 9.1 K/UL (4.8-10.8)
[2017-10-05 08:26] LABS: APPEARANCE,URINE CLEAR; BILIRUBIN, URINE NEGATIVE (NEGATIVE); COLOR,URINE PALE YELLOW; GLUCOSE, URINE (UA) NEGATIVE (NEGATIVE); KETONES,URINE NEGATIVE (NEGATIVE); LEUKOCYTE ESTERASE ,URINE NEGATIVE (NEGATIVE); NITRITE,URINE NEGATIVE (NEGATIVE); PH,URINE 6.5 (4.5-8.0); PROTEIN,URINE NEGATIVE (NEGATIVE); UROBILINOGEN,URINE NORMAL MG/DL (0.0-1.0)
[2017-10-05 08:29] LABS: ANION GAP 9 mmol/L (5-15); BLOOD UREA NITROGEN 5 mg/dL (7-18); CALCIUM 9.3 MG/DL (8.5-10.1); CARBON DIOXIDE 26 MMOL/L (21-32); CHLORIDE 102 MMOL/L (98-107); CREATININE 0.9 MG/DL (0.55-1.30); SODIUM 137 MMOL/L (136-145)
[2017-10-05 08:33] LABS: ALANINE AMINOTRANSFERASE 20 U/L (12-78); ALBUMIN 3.8 G/DL (3.4-5.0); ALBUMIN/GLOBULIN RATIO 0.7 (1.0-2.7); ALKALINE PHOSPHATASE 77 U/L (46-116); ASPARTATE AMINO TRANSFERASE 17 U/L (15-37); BILIRUBIN,TOTAL 0.3 MG/DL (0.2-1.0)
[2017-10-05] MEDS ORDERED: ACETAMINOPHEN-1 EAC1 ORAL (09:02)
[2017-10-05 09:40] VITALS: BP 134/99
== END 2017-10-05 09:42 | disposition home or self-care (01) ==
LOC: EMR 08:00
DX: R10.2 Pelvic and perineal pain (principal); N94.89 Other specified conditions associated with female genital organs and menstrual cycle
CPT/HCPCS: 36415; 80053; 81003; 81025; 85025; 96372; 99284; J1885

== ENCOUNTER 2017-11-28 12:30 | Emergency (ER) | payer MEDICAID ==
[~2017-11-28] VITALS: Ht 160 cm; Wt 84.4 kg
[2017-11-28 12:47] VITALS: BP 142/96
[2017-11-28] MEDS ORDERED: Norco 5mg/325mg tab ORAL ONE (13:15)
[2017-11-28] MEDS ORDERED: Ketorolac 60mg Inj IM ONE (13:15)
--- NOTE | 2017-11-28 13:24 | Emergency Room Report ---
History of Present Illness General Chief Complaint: Pain Source: Patient, Medical Record Present Illness HPI 42-year-old female presents to the emergency department complaining of 8 out of 10 in severity pelvic pain 2 days. Patient reports that she ran out of her Tylenol 3 which she has been taking for her ovarian cyst pain. Patient reports that she has appointment with [facility] on the . Patient states that she called her doctor and they will not give her refill until she is seen in person. Patient was instructed to come to the ER. Patient states that her pain is consistent with episodes that she typically experiences she denies increase in tenderness, localization of the pain, new symptoms such as vaginal discharge, bleeding fevers, chills, nausea or vomiting. Patient denies dysuria , hematuria, urinary urgency or frequency. She denies . Allergies: Coded Allergies: [place] (Verified Allergy, Intermediate, Hives, 09/12/14) Patient History Past Medical History: see triage record Past Surgical History: none Pertinent Family History: none Last Menstrual Period: 11/19/17 Now: No Immunizations: UTD Reviewed Nursing Documentation: PMH: Agreed; PSxH: Agreed Nursing Documentation-PMH Past Medical History: No History, Except For Review of Systems All Other Systems: negative except mentioned in HPI Physical Exam Vital Signs Date Time Temp Pulse Resp B/P (MAP) Pulse Ox O2 Delivery O2 Flow Rate FiO2 11/28/17 12:40 99.0 64 18 142/96 97 Room Air 99.0 Sp02 EP Interpretation: reviewed, normal General Appearance: no apparent distress, alert, GCS 15, non-toxic Head: normocephalic, atraumatic Eyes: bilateral eye normal inspection, bilateral eye PERRL ENT: hearing grossly normal, normal voice Neck: full range of motion Respiratory: lungs clear, normal breath sounds, speaking full sentences Cardiovascular #1: regular rate, rhythm Gastrointestinal: non tender, soft Rectal: deferred Genitourinary: normal inspection Musculoskeletal: back normal, gait/station normal, normal range of motion, non- tender Neurologic: alert, oriented x3, responsive, motor strength/tone normal, sensory intact, normal gait, speech normal, grossly normal Psychiatric: judgement/insight normal Skin: normal color, no rash, warm/dry, well hydrated Medical Decision Making PA Attestation Dr. Dunn is my supervising Physician whom patient management has been discussed with. Diagnostic Impression: Primary Impression: Pelvic pain Additional Impression: Encounter for medication refill ER Course 42-year-old female presents to the emergency department complaining of 8 out of 10 in severity pelvic pain 2 days. Patient reports that she ran out of her Tylenol 3 which she has been taking for her ovarian cyst pain. Patient reports that she has appointment with [facility] on the . Patient states that she called her doctor and they will not give her refill until she is seen in person. Patient was instructed to come to the ER. Patient states that her pain is consistent with episodes that she typically experiences she denies increase in tenderness, localization of the pain, new symptoms such as vaginal discharge, bleeding fevers, chills, nausea or vomiting. Patient denies dysuria , hematuria, urinary urgency or frequency. She denies . Ddx considered but are not limited to: drug seeking, OD, PID, pelvic infection Vital signs: are WNL, pt. is afebrile H&PE are most consistent with need for medication refill. non-toxic in appearance, NAD no localized TTP ORDERS: none required at this time, the diagnosis is clinical ED INTERVENTIONS: None required at this time. - I d/w pt. that for controlled substances she will need to be managed by her PCP. d/w pt. safe prescribing methods that the ED practices. DISCHARGE: At this time pt. is stable for d/c to home. Will provide printed patient care instructions, and any necessary prescriptions. Care plan and follow up instructions have been discussed with the patient prior to discharge. Last Vital Signs Date Time Temp Pulse Resp B/P (MAP) Pulse Ox O2 Delivery O2 Flow Rate FiO2 11/28/17 12:47 99.0 18 142/96 97 Room Air 99.0 11/28/17 12:40 64 Disposition: HOME, SELF-CARE Condition: Stable Scripts Naproxen Sodium (Naproxen Sodium ER) 500 Mg Tbmp.24hr 500 MG PO DAILY PRN for For Pain, #14 TAB Prov: Yasmin Villar 11/28/17 Patient Instructions: Medical Screening Exam Additional Instructions: Take medications as directed. Follow up with a Primary Care Provider in 3 days The purpose of a primary care providers is to safely prescribe necessary prescriptions such as pain medications for non-acute conditions. If you feel that your primary care provider is not properly managing your pain. It is suggested to contact your insurance and request an alternate provider. It is not safe for you to be visiting Emergency Departments multiple times per month in order to have your pain treated by different providers. We suggest you communicate this with your doctor as this falls under the responsibility of your primary care provider to either manage, or temporarily manage until a specialist has assumed responsibility. Return sooner to ED if new symptoms occur, or current symptoms become worse. Do not drink alcohol, drive, or operate heavy machinery after taking [place] as this may cause drowsiness. - Please note that this Emergency Department Report was dictated using [employer] operations specialist technology software, occasionally this can lead to erroneous entry secondary to interpretation by the dictation equipment. Yasmin Villra Nov 28, 2017 13:24
[2017-11-28] MEDS ORDERED: NAPROXEN SODIU500 MG PO (13:25)
[2017-11-28 13:29] VITALS: BP 142/96
== END 2017-11-28 13:29 | disposition home or self-care (01) ==
LOC: EMR 13:20
DX: R10.2 Pelvic and perineal pain (principal)
CPT/HCPCS: 96372; 99283